=== PATIENT | female | born 1985 | race Hispanic/Latino ===

== ENCOUNTER 2017-12-08 05:06 | Inpatient (IN) | payer MEDICAID ==
[~2017-12-08] VITALS: Ht 157.5 cm; Wt 76.2 kg
[2017-12-08 05:50] LABS: APPEARANCE,URINE Clear (CLEAR); BILIRUBIN,URINE Negative (NEGATIVE); COLOR,URINE Yellow (YELLOW); GLUCOSE, URINE (UA) 250 mg/dL (NEGATIVE); KETONES,URINE Negative (NEGATIVE); LEUKOCYTE ESTERASE ,URINE Trace (NEGATIVE); NITRATE,URINE Negative (NEGATIVE); OCCULT BLOOD,URINE Negative (NEGATIVE); PH,URINE 5.5 (5.0-8.0); PROTEIN,URINE Negative (NEGATIVE)
[2017-12-08 06:00] LABS: BACTERIA,URINE None Seen /HPF (None Seen); RBC,URINE 0-1 /HPF (0-1); SQUAMOUS EPITHELIAL CELL,UR Rare /HPF (0-2); WBC,URINE 0-1 /HPF (0-1); YEAST,URINE BUDDING None Seen /HPF (None Seen)
[2017-12-08] MEDS ORDERED: LACTATED RINGERS 1000ML 1,000 ML IV PRN ×2 (06:47→08:47)
[2017-12-08] MEDS ORDERED: LACTATED RINGERS 1000ML 1,000 ML IV SCH (07:00)
[2017-12-08] MEDS ORDERED: PROMETHAZINE HCL 25 MG/ML 1ML AMPULE IM SCH (07:00)
[2017-12-08] MEDS ORDERED: MEPERIDINE-PF 50 MG/ML SYG IVP SCH (07:00)
[2017-12-08] MEDS ORDERED: AMPICILLIN 2GM+NS 100ML 100 ML IV ONE (08:58)
[2017-12-08] MEDS ORDERED: OXYTOCIN 10 USP UNITS/ML ONE ×2 (08:59→12:22)
[2017-12-08] MEDS ORDERED: LACTATED RINGERS 500 ML 500 ML IV PRN (09:00)
[2017-12-08] MEDS ORDERED: AMPICILLIN 1GM+NS 50ML 50 ML IV SCH (09:00)
[2017-12-08] MEDS ORDERED: NALOXONE HCL 0.4 MG/1 ML ML IV PRN (09:00)
[2017-12-08] MEDS ORDERED: EPHEDRINE SULFATE 50 MG/ML AMPULE IVP PRN (09:00)
[2017-12-08] MEDS ORDERED: OXYTOCIN-LR 20 UNITS/1000 ML 1,000 ML IV SCH (09:00)
[2017-12-08] MEDS ORDERED: AMPICILLIN 2GM+NS 100ML 100 ML IV SCH (09:00)
[2017-12-08 09:04] LABS: HEMATOCRIT 30.3 % (36-48); MEAN CORPUSCULAR HEMOGLOBIN 28.4 pg (27.0-33.0); MEAN CORPUSCULAR HGB CONC 34.8 g/dL (32.0-36.0); MEAN CORPUSCULAR VOLUME 81.5 fL (79-99); PLATELET COUNT (AUTO) 236 K/uL (130-400); RED BLOOD CELL COUNT(AUTO) 3.72 MIL/uL (4.00-5.50); RED CELL DISTRIBUTION WIDTH 13.5 % (11.0-15.5); WHITE BLOOD COUNT (AUTO) 8.6 K/uL (4.8-10.8)
[2017-12-08] MEDS ORDERED: MEASLES/MUMPS/RUBELLA VACCINE, LIVE 0.5 ML/VIAL SQ PRN (11:00)
[2017-12-08] MEDS ORDERED: DIPH,PERTUSS(ACELL),TET VAC/PF 0.5 ML VIAL IM PRN (11:00)
[2017-12-08] MEDS ORDERED: BENZOCAINE/LANOLIN/ALOE VERA 60 ML AEROSOL TP PRN (11:00)
[2017-12-08] MEDS ORDERED: WITCH HAZEL 1 PAD TP PRN (11:00)
[2017-12-08] MEDS ORDERED: LANOLIN 30GM OINTMENT TP PRN (11:00)
[2017-12-08 12:05] VITALS: BP 108/71
[2017-12-08 15:45] VITALS: BP 107/69
[2017-12-08] MEDS: IBUPROFEN 600 MG TABLET PO PRN (18:53)
[2017-12-08 19:45] VITALS: BP 110/66
[2017-12-08] MEDS: DOCUSATE SODIUM 100 MG CAP PO SCH (21:16)
[2017-12-08 23:20] VITALS: BP 106/64
[2017-12-09 03:26] VITALS: BP 106/59
[2017-12-09] MEDS: IBUPROFEN 600 MG TABLET PO PRN ×2 (03:26→08:47)
[2017-12-09 05:22] LABS: HEPATITIS Bs ANTIGEN SCREEN P Negative (Negative)
[2017-12-09 06:54] LABS: HEMATOCRIT 28.9 % (36-48); MEAN CORPUSCULAR HEMOGLOBIN 27.6 pg (27.0-33.0); MEAN CORPUSCULAR HGB CONC 33.8 g/dL (32.0-36.0); MEAN CORPUSCULAR VOLUME 81.6 fL (79-99); PLATELET COUNT (AUTO) 220 K/uL (130-400); RED BLOOD CELL COUNT(AUTO) 3.54 MIL/uL (4.00-5.50); WHITE BLOOD COUNT (AUTO) 10.3 K/uL (4.8-10.8)
[2017-12-09 07:48] VITALS: BP 106/59
[2017-12-09 08:14] LABS: RAPID PLASMA REAGIN NONREACTIVE (NONREACTIVE)
[2017-12-09] MEDS: DOCUSATE SODIUM 100 MG CAP PO SCH (08:48)
[2017-12-09 11:24] VITALS: BP 99/60
[2017-12-09] MEDS ORDERED: DOCU-116 PO (13:05)
[2017-12-09] MEDS ORDERED: IBUP-2070 PO (13:06)
== END 2017-12-09 13:30 | disposition home or self-care (01) | DRG 560 ==
LOC: EDH 05:06 → OBSVTOIN 05:07 → LDH 05:07 → WSH 12:05
PROVIDERS: ADMIT Obstetrics & Gynecology; ATTEND Obstetrics & Gynecology
PROC: 10E0XZZ Delivery of Products of Conception, External Approach (ICD-10-PCS; principal; 2017-12-08)
PROC: 0HQ9XZZ Repair Perineum Skin, External Approach (ICD-10-PCS; 2017-12-08)
PROC: 3E0R3BZ Introduction of Anesthetic Agent into Spinal Canal, Percutaneous Approach (ICD-10-PCS; 2017-12-08)
PROC: 00HU33Z Insertion of Infusion Device into Spinal Canal, Percutaneous Approach (ICD-10-PCS; 2017-12-08)
DX: O60.14X0 Preterm labor third trimester with preterm delivery third trimester, not applicable or unspecified (principal); E66.9 Obesity, unspecified; O99.214 Obesity complicating childbirth; Z68.30 Body mass index [BMI] 30.0-30.9, adult; O70.0 First degree perineal laceration during delivery; Z3A.36 36 weeks gestation of pregnancy; Z37.0 Single live birth
CPT/HCPCS: 36415; 81001; 85027; 86592; 86701; 86850; 86900; 86901; 87340; 87390; A4314; J0290; J2590

== ENCOUNTER 2018-01-30 05:37 | Day surgery (SDC) | payer MEDICAID ==
[2018-01-29 12:01] VITALS: BP 96/61
[2018-01-29 12:15] LABS: BASOPHILS % (AUTO) 0.4 % (0.0-5.0); EOSINOPHILS % (AUTO) 2.4 % (0.0-8.0); HEMATOCRIT 35.8 % (36-48); LYMPHOCYTES % (AUTO) 46.1 % (21.0-51.0); MEAN CORPUSCULAR HEMOGLOBIN 27.3 pg (27.0-33.0); MEAN CORPUSCULAR HGB CONC 33.1 g/dL (32.0-36.0); MEAN CORPUSCULAR VOLUME 82.4 fL (79-99); MONOCYTES % (AUTO) 5.9 % (3.0-13.0); NEUTROPHILS % (AUTO) 45.2 % (40.0-77.0); PLATELET COUNT (AUTO) 289 K/uL (130-400); RED BLOOD CELL COUNT(AUTO) 4.35 MIL/uL (4.00-5.50); RED CELL DISTRIBUTION WIDTH 14.1 % (11.0-15.5); WHITE BLOOD COUNT (AUTO) 7.4 K/uL (4.8-10.8)
[2018-01-30] VITALS (16 sets, daily range): BP systolic 103–136; BP diastolic 59–102
[~2018-01-30] VITALS: Ht 157.5 cm; Wt 71.5 kg
[~2018-01-30 05:37] MED LIST: DOCU-116 PO; IBUP-2070 PO
[2018-01-30] MEDS ORDERED: LACTATED RINGERS 1000ML 1,000 ML IV ONE (07:29)
[2018-01-30] MEDS ORDERED: GLYCOPYRROLATE 0.2 MG/ML 5 ML VIAL ONE (07:30)
[2018-01-30] MEDS ORDERED: LIDOCAINE PF 2% 5ML ABBOJECT ONE (07:30)
[2018-01-30] MEDS ORDERED: MIDAZOLAM HCL 1 MG/ML 2ML VIAL ONE (07:30)
[2018-01-30] MEDS ORDERED: PROPOFOL 10 MG/ML 20ML VIAL IV ONE (07:30)
[2018-01-30] MEDS ORDERED: DEXAMETHASONE SOD PHOSPHATE 10MG/ML 1ML VIAL ONE (07:30)
[2018-01-30] MEDS ORDERED: FENTANYL CITRATE PF 50 MCG/1 ML 2ML VIAL ONE (07:31)
[2018-01-30] MEDS ORDERED: ROCURONIUM BROMIDE 10MG/1ML 5ML VL ONE (07:41)
[2018-01-30] MEDS ORDERED: NEOSTIGMINE METHYLSULFATE 1MG/ML IV ONE (08:01)
[2018-01-30] MEDS ORDERED: ONDANSETRON HCL MDV 20ML 2 MG/ML VIAL ONE (08:01)
== END 2018-01-30 10:00 | disposition home or self-care (01) ==
LOC: DAH 05:37
PROVIDERS: ATTEND Obstetrics & Gynecology
DX: Z30.2 Encounter for sterilization (principal); Z68.30 Body mass index [BMI] 30.0-30.9, adult
CPT/HCPCS: 36415; 58670; 84703; 85025; 86850; 86900; 86901; A4215; A4351; A4510; A4600; A4606; A4930; C1769 ×2; J1100; J2001; J2250; J2704; J2710; J3010; J3490 ×2; J7120